=== PATIENT | female | born 1990 | race Caucasian/White ===

== ENCOUNTER 2017-06-15 13:37 | Emergency (ER) | payer OTHER ==
[2017-06-15 13:41] VITALS: BP 110/69
--- NOTE | 2017-06-15 13:53 | ED Physician Documentation ---
PD HPI BACK PAIN - Stated complaint Stated Complaint: BACK PX - Chief complaint Chief Complaint: Back Pain - History obtained from History obtained from: Patient - History of Present Illness Timing - onset: Other (Back pain this morning that was atraumatic, it is in the low lumbar spine and worse if she is sitting straight or twisting. It does not radiate and there are no urinary symptoms, or weakness, numbness, or tingling in the legs or around the groin. No incontinence. No possibility of . 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.) Review of Systems Constitutional: denies: Fever, Chills Cardiac: denies: Chest pain / pressure, Palpitations Respiratory: denies: Dyspnea, Cough GI: denies: Abdominal Pain, Nausea, Vomiting, Constipation, Diarrhea : denies: Dysuria, Frequency, Hesitancy, Unable to Void, Incontinent, Now EGA PD PAST MEDICAL HISTORY - Past Medical History Past Medical History: No - Past Surgical History Past Surgical History: No - Present Medications Home Medications: Ambulatory Orders Medication Instructions Recorded Confirmed Cyclobenzaprine [Flexeril] 10 mg PO TID PRN #20 tablet 06/15/17 Meloxicam [Mobic] 7.5 mg PO BIDWM PRN #15 tablet 06/15/17 - Allergies Allergies/Adverse Reactions: Allergies Allergy/AdvReac Type Severity Reaction Status Date / Time No Known Drug Allergies Allergy Verified 06/15/17 13:41 - Social History Does the pt smoke?: No Smoking Status: Never smoker Does the pt drink ETOH?: Yes Does the pt have substance abuse?: No PD ED PE NORMAL - Vitals Vital signs reviewed: Yes - General General: Alert and oriented X 3, No acute distress - Abdomen Abdomen: Soft, Non tender - Back Back: No CVA TTP, No spinal TTP - Extremities Extremities: No edema, No calf tenderness / cord, Other (Mild tenderness of the Achilles insertions on both calcanei, left greater than right but no limited range of motion or skin findings. The patient has equal and normal Achilles and patellar reflexes bilaterally. Normal sensation in all areas of the legs. Patient denies saddle anesthesia. Normal strength in flexion-extension at the ankles, knees, and flexion of the hips.) - Neuro Neuro: Alert and oriented X 3, Normal speech - Psych Psych: Normal mood, Normal affect Results - Vitals Vitals: Vital Signs - 24 hr 06/15/17 13:40 Temperature 36.3 C L Heart Rate 78 Respiratory 18 Rate Blood Pressure 110/69 O2 Saturation 100 Oxygen O2 Source Room air PD MEDICAL DECISION MAKING - ED course ED course: This patient has seemingly uncomplicated musculoskeletal back pain. The patient has no "red flags." Specifically denies IV drug use, fevers, incontinence, saddle anesthesia. Spinal epidural abscess was considered, given that the patient has no fever, is not diabetic, has no spinal tenderness, does not use IV drugs, and has no bilateral neurologic symptoms, the diagnosis of spinal epidural abscess is considered exceedingly unlikely. Departure - Departure Disposition: 01 Home, Self Care Clinical Impression: Achilles tendinitis of both lower extremities Lumbar strain Qualifiers: Encounter type: initial encounter Qualified Code(s): S39.012A - Strain of muscle, fascia and tendon of lower back, initial encounter Condition: Good Record reviewed to determine appropriate education?: Yes Instructions: ED Spasm Back No Trauma Prescriptions: Cyclobenzaprine [Flexeril] 10 mg PO TID PRN #20 tablet PRN Reason: Pain Meloxicam [Mobic] 7.5 mg PO BIDWM PRN #15 tablet PRN Reason: Pain Comments: Call your doctor to arrange a follow-up appointment, make the next available appointment. In the interim, return anytime if worse or if new symptoms develop. Lookup stretches online for plantar fasciitis, that would be appropriate for your Achilles tendon.
== END 2017-06-15 14:06 | disposition home or self-care (01) ==
LOC: ED 13:37
DX: S39.012A Strain of muscle, fascia and tendon of lower back, initial encounter (principal); M76.62 Achilles tendinitis, left leg; M76.61 Achilles tendinitis, right leg
CPT/HCPCS: 99283

== ENCOUNTER 2019-10-30 05:55 | Day surgery (SDC) | payer OTHER ==
[2019-10-30] MEDS ORDERED: LACTATED RINGERS 1,000 ML IV ONE (06:29)
[2019-10-30 06:43] LABS: HCG UR QUAL NEGATIVE
--- NOTE | 2019-10-30 08:08 | ANESTHESIA ---
Pre-Anesthesia VS, & Labs - Diagnosis dysmenorrhea - Procedure diagnostic laparoscopy and placement of IUD Vital Signs: Temp Pulse Resp BP Pulse Ox 36.3 C L 100 20 128/82 H 100 10/30/19 06:38 10/30/19 06:38 10/30/19 06:38 10/30/19 06:38 10/30/19 06:38 Height 5 ft 6.14 in Weight (kg) 84.1 kg Body Mass Index 27.4 - NPO >8 hours - Is Patient ?: No Home Medications and Allergies Home Medications: Ambulatory Orders Lactobacillus Acidophilus [Probiotic Acidophilus] 1.5 mg PO DAILY 10/11/19 Naproxen [Naprosyn] 500 mg PO BID PRN 10/11/19 oxyCODONE [Roxicodone] 5 mg PO Q4-6H 10/30/19 Lactobacillus Acidophilus [Probiotic Acidophilus] 1.5 mg PO DAILY 10/11/19 Naproxen [Naprosyn] 500 mg PO BID PRN 10/11/19 oxyCODONE [Roxicodone] 5 mg PO Q4-6H 10/30/19 Allergies/Adverse Reactions: Allergies Allergy/AdvReac Type Severity Reaction Status Date / Time No Known Drug Allergies Allergy Verified 10/30/19 06:52 Anes History & Medical History - Anesthetic History Anesthesia Complications: reports: No previous complications - Medical History Cardiovascular: reports: None Pulmonary: reports: None Gastrointestinal: reports: None Urinary: reports: None Neuro: reports: None Musculoskeletal: reports: None Endocrine/Autoimmune: reports: None Blood Disorders: reports: None Skin: reports: None Smoking Status: Never smoker Psychosocial: reports: Depression, Anxiety - Surgical History Eyes Ears Nose Throat (EENT): Myringotomy (tubes) Exam General: Alert, Oriented x3, Cooperative, No acute distress Dental: WNL Mouth Openin Fingerbreadth Neck Mobility: Normal Mallampati classification: II Respiratory: Lungs clear, Normal breath sounds, No respiratory distress, No accessory muscle use Cardiovascular: Regular rate, Normal S1, Normal S2, No murmurs Mental/Cognitive Status: Alert/Oriented X3, Normal for patient Plan Anesthesia Type: General Consent for Procedure(s) Verified and Reviewed: Yes Code Status: Attempt Resuscitation ASA classification: 1-Healthy patient Is this case an emergency?: No
[2019-10-30] MEDS ORDERED: LIDOCAINE 1%-EPI 1:100000 20 ML MDV ONE (10:16)
[2019-10-30] MEDS ORDERED: VASOPRESSIN 20 UNIT/ML VIAL ONE (10:16)
[2019-10-30] MEDS ORDERED: METHYLENE BLUE 0.5% 50 MG/10 ML AMPULE ONE (10:16)
[2019-10-30] MEDS ORDERED: BUPIVACAINE 0.5% PF 30 ML VIAL ONE (10:16)
[2019-10-30] MEDS ORDERED: SILVER NITRATE APPLICATOR TOP ONE (10:16)
[2019-10-30] MEDS ORDERED: LEVONORGESTREL 20 MCG/24H IUD IY ONE (10:21)
[2019-10-30] MEDS ORDERED: HYDROcod/ACETAM 10 MG/325 MG TABLET PO PRN (11:49)
--- NOTE | 2019-10-30 11:53 | OPERATIVE REPORT ---
Operative Report - General Procedure Date: 10/30/19 Planned Procedure: Diagnostic laparoscopy Placement of Mirena Pre-Op Diagnosis: Dysmenorrhea Procedure Performed: Diagnostic laparoscopy, biopsy of peritoneal lesion, fulguration of endomet riosis, placement of Mirena IUD Post Op Diagnosis: Endometriosis, probable chronic PID - Procedure Note Primary Surgeon: Andria Secondary Surgeon: Angélica Anesthesia Provider: Matt Anesthesia Technique: General ET tube Pathology: Peritoneal biopsy IV Fluids (mL): 300 Estimated Blood Loss (mL): 25 Indications: Dysmenorrhea unresponsive to conservative measures Findings: Exam under anesthesia The uterus was of normal size shape, shape, and consistency, and anteverted. The adnexa E were normal. Operative findings Exam under anesthesia revealed a normal sized anteverted uterus. The ovaries appeared normal. Both tubes appeared clubbed. There was endometriosis in the form of powder alford in the left anterior cul-de-sac 1 of which was biopsied, in the posterior cul-de-sac, and in the right ovarian fossa. The left ovarian fossa was clear. There was a Stan window in the right ovarian fossa. The appendix appeared normal and the liver edge and gallbladder appeared normal. Complications: None - Other Other Information/Narrative: The patient was taken to the operating room, where general endotracheal anesthesia was administered without difficulty. She was then positioned in the low dorsal lithotomy position with her lower extremities in Yellow Fin stirrups. Vagina, perineum, and abdomen were then prepped and draped in a sterile fashion. Procedure Time-Out was then performed. An exam under anesthesia was performed. A sterile bivalve speculum was then inserted into the vagina. The anterior lip of the cervix was grasped with a Hulka tenaculum. The speculum was then removed, and attention was turned to the laparoscopy. 0.5% Marcaine was injected infraumbilically, then a 7-mm horizontal skin incision made. A 0-degree, 5 mm laparoscope was inserted into a 5 mm trocar and passed through the anterior layers of the abdominal wall using Optiview technique. The abdomen was the insufflated with CO2. The abdomen was visualized, then 2 additional ports placed at the left and right lower quadrants, first instilling local anesthetic, then placing the ports under direct visualization with the laparoscope. The patient was placed into Trendelenberg and bowel swept out of the cul-de-sac. The pelvis was visualized with the findings as noted above. The left anterior cul-de-sac lesion was excised sharply with laparoscopic scissors and removed under direct visualization for pathologic examination. The biopsy site was made hemostatic with electrocautery. Bovie cautery was utilized to fulgurate the endometriosis lesions. At this point the laparoscopy was deemed complete, and all trocars were removed from the abdomen. The carbon dioxide gas was then allowed to escape. The incisions were then closed with 4-0 Monocryl in a subcuticular fashion followed by Dermabond skin adhesive. The uterine manipulator was removed. A speculum was reinserted into the vagina and a Mirena IUD was placed without difficulty. The string was shortened to 3 cm and the speculum removed. At this point the procedure was deemed complete. The patient was then replaced supine, awakened, extubated, and transferred to the PACU in stable condition. There were no complications. Sponge, lap, and needle count were correct x 3.
[2019-10-30] MEDS ORDERED: ACETAMINOPHEN 1,000 MG/100 ML 100 ML IV ONE (12:06)
[2019-10-30] MEDS ORDERED: HYDROcod/ACETAM 5/325 MG TABLET ONE (12:34)
[2019-10-30] MEDS ORDERED: HYDROcod/ACETAM 10 MG/325 MG TABLET ONE (12:37)
[2019-10-30 13:09] VITALS: BP 105/64
== END 2019-10-30 05:56 | disposition home or self-care (01) ==
LOC: SDS 05:55
PROVIDERS: ATTEND Obstetrics & Gynecology
PROC: 0UBF4ZX Excision of Cul-de-sac, Percutaneous Endoscopic Approach, Diagnostic (ICD-10-PCS; principal; 2019-10-30 07:30)
PROC: 0UH97HZ Insertion of Contraceptive Device into Uterus, Via Natural or Artificial Opening (ICD-10-PCS; 2019-10-30 07:30)
DX: N94.4 Primary dysmenorrhea (principal); N80.3 Endometriosis of pelvic peritoneum; N94.12 Deep dyspareunia
CPT/HCPCS: 81025

== ENCOUNTER 2020-04-24 08:00 | Outpatient (CLI) | payer OTHER | END 2020-04-24 23:59 | disposition home or self-care (01) | LOC: COV 08:00 | PROVIDERS: ATTEND Orthopaedic Surgery Sports Medicine | DX: Z01.812 Encounter for preprocedural laboratory examination (principal); Z11.59 Encounter for screening for other viral diseases ==

== ENCOUNTER 2022-09-02 08:00 | Outpatient (CLI) | payer OTHER | END 2022-09-02 23:59 | disposition home or self-care (01) | LOC: LAB.N 08:00 | PROVIDERS: ATTEND Physician Assistant | DX: Z11.1 Encounter for screening for respiratory tuberculosis (principal) | CPT/HCPCS: 81599; 86480 ==

== ENCOUNTER 2023-05-23 12:14 | Emergency (ER) | payer OTHER ==
[2023-05-23 12:24] VITALS: BP 124/84; O2SAT 97
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
--- OUTSIDE RECORDS SUMMARY | 2023-05-23 12:45 | EXTERNAL MEDICAL SUMMARY RPT | Continuity of Care Document ---
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 Name Role Phone Petra Sheldon Unavailable Unavailable Medications date description facility 2023-04-04 00:00 Benzonatate [facility] Problems date description facility 2023-04-02 08:28 Endometriosis, unspecified [facility] 2023-04-02 08:28 Encounter for other general counseling and advice on [facility] 2023-04-02 08:28 Other specified postprocedural states [facility] 2023-04-02 08:40 Endometriosis, unspecified [facility] 2023-04-02 08:40 Encounter for other general counseling and advice on [facility] 2023-04-02 08:40 Other specified postprocural [facility] Procedures date description facility 2023-04-04 00:00 X-ray of chest, two views [facility] 2023-04-02 00:00 Fluoroscopic hysterosalpingogra [facility] Results/Labs test date facility value unit notes Social History date description facility 2023-03-18 00:00 Never smoked tobacco (finding) [facility] 2023-03-25 00:00 Never smoked tobacco (finding) [facility] 2023-04-04 00:00 Never smoked tobacco (finding) [facility] Vital Signs date measurement value units 2023-04-04 00:00 BP_diastolic 68 mmHg 2023-04-04 00:00 BP_systolic 112 mmHg 2023-04-04 00:00 heart_rate 85 /min 2023-04-04 00:00 o2_saturation 99 % 2023-04-04 00:00 respiration_rate 16 /min 2023-04-04 00:00 temperature_metric 36.61 C 2023-04-04 00:00 temperature_standard 97.9 F
[2023-05-24 07:08] LABS: HIV SCREEN 4TH GENERATION Non Reactive (Non Reactive)
[2023-05-24 21:07] LABS: HCV AB Non Reactive (Non Reactive)
== END 2023-05-23 13:28 | disposition home or self-care (01) ==
LOC: ED 12:14
DX: Z29.8 Encounter for other specified prophylactic measures (principal); Z20.828 Contact with and (suspected) exposure to other viral communicable diseases
CPT/HCPCS: 1040M; 86317; 86803; 87389; 99282; 99283

== ENCOUNTER 2024-05-04 08:00 | Outpatient (CLI) | payer OTHER | END 2024-05-04 23:59 | disposition home or self-care (01) | LOC: LAB.N 08:00 | PROVIDERS: ATTEND Family Medicine | DX: N39.0 Urinary tract infection, site not specified (principal) | CPT/HCPCS: 87077; 87086; 87181 ==